=== PATIENT | female | born 1955 | race Hispanic/Latino ===

== ENCOUNTER 2017-06-21 18:03 | Emergency (ER) | payer MEDICAID ==
[2017-06-21 18:11] VITALS: BP 159/61; PULSE 70; RESP 18; TEMP 97; O2SAT 99
[2017-06-21] MEDS ORDERED: Sodium Chloride 0.9% 500 ML IV STA (18:30)
--- NOTE | 2017-06-21 18:33 | ED PDOC ---
HPI: General Adult Time Seen by Provider: 06/21/17 18:18 Chief Complaint (Nursing): Headache Chief Complaint (Provider): Anxiety History Per: Patient History/Exam Limitations: no limitations Onset/Duration Of Symptoms: Days (2 months) Have you had recent travel within the past 21 days to any of the following countries: [place], [place], [place] or [place]?: No Current Symptoms Are (Timing): Still Present Additional Complaint(s): Pt. with off and on episodes of chest pain, dyspnea, total facial numbness, left arm numbness all going on 2 months. No specific trigger. Goes away on its own. No abd pain, nausea, vomit, leg pain, neck pain, fever. Has headaches frontal off and on like her migraine. Today had her face tighten up while talking to her so ems called. Pt. states rubbed the face and it went away. Took 1 fiorecet for headache today evening. Not worst headache of her life. Feels anxious as she has a lot of stress at home. Not suicidal or homicidal. Past Medical History Vital Signs: Last Vital Signs Temp 97 F L 06/21/17 18:05 Pulse 70 06/21/17 18:05 Resp 18 06/21/17 18:05 BP 159/61 H 06/21/17 18:05 Pulse Ox 99 06/21/17 18:36 - Medical History PMH: Asthma, CVA, Depression, Migraine - Surgical History Surgical History: No Surg Hx - Family History Family History: States: Unknown Family Hx - Living Arrangements Living Arrangements: With Family - Social History Current smoker - smoking cessation education provided: No Alcohol: None Drugs: Denies - Home Medications Home Medications: Ambulatory Orders Medication Instructions Recorded Carbamide Peroxide [Murine Ear Wax 15 ml OT QPM #1 drops 01/28/16 Removal System] Escitalopram [Lexapro] 20 mg PO DAILY 01/28/16 Famotidine [Pepcid] 40 mg PO DAILY 01/28/16 - Allergies Allergies/Adverse Reactions: Allergies Allergy/AdvReac Type Severity Reaction Status Date / Time No Known Allergies Allergy Verified 01/28/16 20:00 Review of Systems ROS Statement: Except As Marked, All Systems Reviewed And Found Negative ENT: Positive for: Other (facial tightness) Cardiovascular: Positive for: Chest Pain Respiratory: Positive for: Shortness of Breath Neurological: Positive for: Numbness, Headache Psych: Positive for: Anxiety Physical Exam - Reviewed Nursing Documentation Reviewed: Yes Vital Signs Reviewed: Yes - Physical Exam Appears: Positive for: Non-toxic, No Acute Distress Head Exam: Positive for: ATRAUMATIC, NORMAL INSPECTION, NORMOCEPHALIC Skin: Positive for: Normal Color, Warm, DRY Eye Exam: Positive for: EOMI, Normal appearance, PERRL ENT: Positive for: Normal ENT Inspection Neck: Positive for: Normal, Painless ROM Cardiovascular/Chest: Positive for: Regular Rate, Rhythm Respiratory: Positive for: CNT, Normal Breath Sounds Gastrointestinal/Abdominal: Positive for: Normal Exam, Bowel Sounds, Soft. Negative for: Tenderness Back: Positive for: Normal Inspection. Negative for: L CVA Tenderness, R CVA Tenderness Extremity: Positive for: Normal ROM. Negative for: Tenderness, Pedal Edema Neurologic/Psych: Positive for: Alert, manager transfusion II-XII, Oriented. Negative for: Motor/Sensory Deficits, Aphasia, Facial Droop - ECG O2 Sat by Pulse Oximetry: 99 Pulse Ox Interpretation: Normal - Progress ED Course And Treament: 1857: Dr. Samson to take over care. Fu on labs and imaging. Disposition - Clinical Impression Clinical Impression: Headache, Paresthesia - Patient ED Disposition Is Patient to be Admitted: Transfer of Care - Disposition Disposition: Transfer of Care Disposition Time: 18:58 Condition: STABLE Patient Signed Over To: Manuel Samson
[2017-06-21 19:14] LABS: BASO # 0.1 K/uL (0.0-0.2); BASO % 1.2 % (0.0-2.0); EOS # 0.1 K/uL (0.0-0.7); EOS % 0.6 % (0.0-4.0); HEMATOCRIT 44.5 % (34.0-47.0); LYMPH # 2.3 K/uL (1.0-4.3); LYMPH % 25.8 % (20.0-40.0); MEAN CELL VOLUME 87.5 fl (81.0-99.0); MEAN CORPUSCULAR HEMOGLOBIN 28.8 pg (27.0-31.0); MEAN PLATELET VOLUME 10.4 fl (7.2-11.7); MONO # 0.6 K/uL (0.0-0.8); NEUT # 5.9 K/uL (1.8-7.0); NEUT % 65.4 % (50.0-75.0); NRBC % 0.1 % (0.0-0.0); RED CELL DISTRIBUTION WIDTH 13.6 % (11.5-14.5)
[2017-06-21 19:26] LABS: PARTIAL THROMBOPLASTIN TIME 36.3 Seconds (25.6-37.1)
--- NOTE | 2017-06-21 19:36 | ED PDOC ---
- Laboratory Results Result Diagrams: 06/21/17 19:00 06/21/17 19:00 - ECG O2 Sat by Pulse Oximetry: 99 Medical Decision Making Medical Decision Makin:00 Patient transferred over to me by Dr. Sahu pending blood work and CT Scan. 20:00 Patient with negative workup, states symptoms resolved. Wishing to "bipolar disorder" removed form her MR, offered to speak with admin regarding issue. Stable for discharge. Return precautions given. Scribe Attestation: Documented by Valerie Saab, acting as a scribe for Manuel Samson MD. Provider Scribe Attestation: All medical record entries made by the Scribe were at my direction and personally dictated by me. I have reviewed the chart and agree that the record accurately reflects my personal performance of the history, physical exam, medical decision making, and the department course for this patient. I have also personally directed, reviewed, and agree with the discharge instructions and disposition. Disposition - Clinical Impression Clinical Impression: Headache, Paresthesia - POA Present On Arrival: None - Disposition Referrals: Pipe Kurtz MD [Staff Provider] - Disposition: Routine/Home Disposition Time: 20:00 Condition: STABLE Instructions: Temporomandibular Disorder (ED), Paresthesia (ED) Forms: Viki (Belarusian)
--- NOTE | 2017-06-21 19:41 | CT ---
EXAM: CT Head Without Intravenous Contrast EXAM DATE/TIME: 06/21/2017 6:29 PM CLINICAL HISTORY: 62 years old, female; Pain; Headache; Other: Face numbness; Additional info: Headache. Physician doc. Sent TECHNIQUE: Axial computed tomography images of the head/brain without intravenous contrast. All CT scans at this facility use one or more dose reduction techniques, viz.: automated exposure control; ma/kV adjustment per patient size (including targeted exams where dose is matched to indication; i.e. head); or iterative reconstruction technique. Coronal and sagittal reformatted images were created and reviewed. COMPARISON: CT - HEAD^HEAD ROUTINE (ADULT) 06/29/2009 3:50:46 PM FINDINGS: Brain: Ventricles are normal in size and configuration. There is no midline shift. There are no intra-axial or extra-axial mass lesions or areas of hemorrhage. There are basal ganglia calcifications. There are no abnormal fluid collections. Murphy-white differentiation is maintained. Ventricles: See above. Bones: Cranial vault is intact. Soft tissues: unremarkable Sinuses: There is no acute sinusitis. Ears and mastoids: Middle ears and mastoids are unremarkable Orbits: Orbital contents are unremarkable. IMPRESSION: No acute intracranial abnormality
[2017-06-21 19:46] LABS: ALB/GLOB RATIO 1.8 (1.0-2.1); ALCOHOL SERUM < 10 mg/dl (0-10); ALKALINE PHOSPHATASE 98 U/L (38-126); ALT/SGPT 42 U/L (9-52); AST/SGOT 36 U/L (14-36); BILIRUBIN,TOTAL 0.4 mg/dl (0.2-1.3); BLOOD UREA NITROGEN 18 mg/dl (7-17); CALCIUM 10.7 mg/dL (8.4-10.2); CARBON DIOXIDE 24 mmol/L (22-30); CHLORIDE 104 mmol/L (98-107); GFR AFRICAN-AMERICAN > 60; GLUCOSE,RANDOM 98 mg/dL (65-105); POTASSIUM 3.8 MMOL/L (3.6-5.0); SODIUM 141 mmol/l (132-148); TOTAL PROTEIN 7.6 G/DL (6.3-8.2)
--- NOTE | 2017-06-22 07:51 | RAD ---
HISTORY: dyspnea COMPARISON: Comparison is made to 07/30/2012 FINDINGS: LUNGS: No active pulmonary disease. PLEURA: No significant pleural effusion identified, no pneumothorax apparent. CARDIOVASCULAR: Normal. OSSEOUS STRUCTURES: No significant abnormalities. VISUALIZED UPPER ABDOMEN: Normal. OTHER FINDINGS: None. IMPRESSION: No active disease.
--- NOTE | 2017-06-22 11:22 | CARD ---
APPROVED REPORT EKG Measurement Heart [id number] <Conclusion> Normal sinus rhythm Nonspecific ST abnormality Abnormal ECG
== END 2017-06-21 20:52 | disposition home or self-care (01) ==
LOC: H.ER 18:03
DX: R51 Headache (principal); R20.2 Paresthesia of skin
CPT/HCPCS: 70450; 71010; 80053; 80320; 80324; 80345; 80346; 80349; 80353; 80358; 80361; 82948; 83992; 84484; 85025; 85610; 85730; 93005; 99284; J7040